=== PATIENT | male | born 1990 | race Caucasian/White ===

== ENCOUNTER 2018-04-27 22:40 | Emergency (ER) | payer OTHER ==
[~2018-04-27] VITALS: Ht 175.3 cm; Wt 77.1 kg
[2018-04-27 22:43] VITALS: Ht 175.3 cm; Wt 77.1 kg
[2018-04-28 00:46] VITALS: BP 134/92
== END 2018-04-28 00:46 | disposition home or self-care (01) ==
LOC: ED 22:40
DX: S13.9XXA Sprain of joints and ligaments of unspecified parts of neck, initial encounter (principal); S06.0X0A Concussion without loss of consciousness, initial encounter; F32.9 Major depressive disorder, single episode, unspecified; W22.8XXA Striking against or struck by other objects, initial encounter; Y93.89 Activity, other specified; Y92.89 Other specified places as the place of occurrence of the external cause; Y99.8 Other external cause status
CPT/HCPCS: J8597; Q0162